=== PATIENT | male | born 1995 | race Caucasian/White ===

== ENCOUNTER 2016-12-02 16:13 | Emergency (ER) | payer OTHER ==
[~2016-12-02] VITALS: Ht 177.8 cm; Wt 83.7 kg
[2016-12-02 16:19] VITALS: TEMP 37; Ht 177.8 cm; Wt 83.7 kg
[2016-12-02] MEDS ORDERED: AMPH20TA2 PO (16:23)
--- NOTE | 2016-12-02 16:23 | EMERGENCY ROOM VISIT NOTE ---
History Report prepared by Sharif: Shantel Boyd Under the Supervision of: Dr. Barney Conley M.D. First contact with patient: 16:13 Chief Complaint: ALCOHOL OVERDOSE Stated Complaint: ETPH History of Present Illness The patient is a 21 year old male who presents to the Emergency Room with complaints of an episode of alcohol intoxication beginning just [employer]. The patient states that he was drinking today and had 8 or 9 cups of Dada Martinez. EMS reports that they found the patient sleeping in the hallway of his dorm. He denies any medical problems, trauma, fall, drug use, and attempt to hurt himself. He denies any physical complaints. Denies chest pain or shortness of breath. Source of History: patient, friend Onset: just [employer] Position: other (global) Quality: other (intoxicated) Timing: other (episode) Note: He denies any medical problems, trauma, fall, drug use, and attempt to hurt himself. Review of Systems See HPI for pertinent positives & negatives. A total of 10 systems reviewed and were otherwise negative. Past Medical & Surgical Medical Problems: (1) No Known Active Medical Problems Old medical records were reviewed. Nurse's notes were reviewed and I agree with. Family History No pertinent family history stated. Social History Marital Status: single Housing Status: lives with roommate Occupation Status: [employer] student Current/Historical Medications Scheduled Amphetamine-Dextroamphetamine 20MG (Adderall 20MG), 20 MG PO DAILY Doxycycline Monohydrate (Monodox), 100 MG PO DAILY Allergies Coded Allergies: No Known Allergies (Unverified , 12/02/16) Physical Exam Vital Signs Date Time Temp Pulse Resp B/P Pulse Ox O2 Delivery O2 Flow Rate FiO2 12/02/16 18:01 85 14 135/87 98 12/02/16 16:38 85 12/02/16 16:19 37.0 84 25 134/76 98 Room Air Physical Exam General: Mildly intoxicated male who answers questions, appropriately mild slurred speech, denies any complaints. HEENT: Normal cephalic atraumatic. Pupils are equal round and reactive to light. Extraocular movements are intact. Oropharynx is pink with moist mucous membranes. No swelling of the mouth lips or tongue. Neck: Supple with a midline trachea. No meningeal signs or stiffness, no JVD or bruits. No Stridor. Chest: Clear to auscultation bilaterally. No wheezes or rhonchi. No increased work of breathing. Heart: regular rate and rhythm. Abdomen: Soft nontender, nondistended without rebound guarding or rigidity. Extremities: No cyanosis clubbing or edema. No calf tenderness or assymetry Spine/Back. Non tender to palpation. No CVA tenderness Skin: Good turgor without rashes. Neurologic exam: Cranial nerves two through 12 are intact. Motor and sensation are intact and symmetrical throughout. Medical Decision & Procedures Laboratory Results Test 12/02/16 16:39 Ethyl Alcohol mg/dL 269.0 mg/dl (0-3) Laboratory studies as stated above per my review. ED Course 1613: Past medical records reviewed. The patient was evaluated in room B12, and a complete history and physical examination were performed. 174: Upon reevaluation, the patient is hemodynamically stable. I discussed the results and treatment plan with the patient. He verbalized agreement of the treatment plan. The patient was discharged home. Medical Decision Differential diagnoses include alcohol intoxication, trauma, electrolyte or metabolic imbalance, and overdose. This patient was brought in after being found intoxicated and sleeping his dorm. He only appears mildly intoxicated and is able answer questions appropriately. he denies any coingestions or trauma or physical complaints. Blood alcohol level was obtained and he was placed on a school bus monitor with aspiration precautions. He was reassessed frequently. His blood alcohol was in the 260s. He is awake and talkative despite this. He was observed in the ER. His no complaints and he is alert on 3 and only appears mildly intoxicated. his sober friends did show up and they're going to take him home. He will not drinking more alcohol and he will return if any new problems or concerns. Impression Primary Impression: Alcohol intoxication Scribe Attestation The scribe's documentation has been prepared under my direction and personally reviewed by me in its entirety. I confirm that the note above accurately reflects all work, treatment, procedures, and medical decision making performed by me. Departure Information Dispostion Home / Self-Care Forms HOME CARE DOCUMENTATION FORM, IMPORTANT VISIT INFORMATION Patient Instructions Alcohol Intoxication - [facility], [place] Emergency Department: [employer] Students and Alcohol Related Visits , My [facility] Additional Instructions Rest. Drink plenty of fluids. Do not drink any more alcohol. Return if any new problems or concerns.
[2016-12-02] MEDS ORDERED: DOXY100C76 PO (16:33)
[2016-12-02 18:01] VITALS: BP 135/87; PULSE 85; O2SAT 98
== END 2016-12-02 18:02 | disposition home or self-care (01) ==
LOC: C.EDB 16:15
DX: F10.129 Alcohol abuse with intoxication, unspecified (principal); Z79.899 Other long term (current) drug therapy